=== PATIENT | female | born 1950 | race Caucasian/White ===

== ENCOUNTER 2016-11-01 11:55 | Inpatient (IN) | payer OTHER ==
[~2016-11-01] VITALS: Ht 167.6 cm; Wt 86.4 kg
[~2016-11-01 11:55] MED LIST: IBUP800T28 PO
[2016-11-01 11:56] VITALS: BP 155/92; PULSE 81; RESP 16; O2SAT 93
--- NOTE | 2016-11-01 12:14 | ED.REPORT ---
HPI-General Illness Date of Service November 01, 2016 ED Provider: George Trujillo DO Pt is a 66 y.o. female with a hx of PVCs' who presents to the ED via EMS c/o rapid palpitations. She states she was cleaning her house and bent over to grab something and she began to feel lightheaded and near syncopal. She states that she felt like her heart stop for 10-30 seconds and she tried coughing as it has helped "re-start her heart" with her PVC's in the past. She states upon sitting down her recorded HR was 190. She denies associated SOB and chest pain. Upon arrival to the ED the pt states her sx have resolved. She claims that she has been on a recent strict diet and has increased stress and anxiety in her life. Nursing Notes Stated Complaint: RAPID HEART RATE Chief Complaint: Dysrhythmia/Cardiac Nursing Notes Reviewed: Yes Allergies: Coded Allergies: tetracycline (Verified Allergy, Severe, GI UPSET, 11/01/16) macadamia nut oil (Verified Allergy, Unknown, Hives, 11/01/16) Scheduled PRN Ibuprofen (Ibuprofen) 800 Mg Tablet 800 MG PO QID PRN PRN For Pain General Time Seen by MD: 12:07 Chief Complaint Other (Palpitations, rapid) Hx Obtained From: Patient Arrived By: Ambulance Sudden in Onset?: Yes Onset Occurred: Just prior to arrival Symptom Duration: 31 - 45 minutes Severity: Current: No pain currently Severity: Maximum: No pain Past Medical History Past Medical History Anxiety Depression HTN h/o colitis Reports: Hypertension Reports: Thyroid disease Past Surgical History Cyst removal Reports: Hysterectomy, Tonsillectomy Smoking History Former Smoker Social History Alcohol Use: "Social" Ambulatory Status Independent Review of Systems Full Review of Systems Respiratory: Denies: Shortness of breath Cardiovascular: Reports: Palpitations (rapid), Syncope (Near), Denies: Chest pain Neurologic: Reports: Lightheaded Psychiatric: Reports: Anxiety, Stress Complete sys rev & neg: except as marked. Physical Exam Vital Signs Vital Signs Date Time Temp Pulse Resp B/P Pulse Ox O2 Delivery O2 Flow Rate FiO2 11/01/16 11:56 36.6 81 16 155/92 93 Room Air Initial VS: Reviewed Abdomen / GI: No distention Extremities: Vascular intact, Neuro intact Skin: Warm, Dry, No cyanosis Neurologic: Alert, Oriented, Nonfocal Psychiatric: Mood/affect normal, Behavior normal, Normal thought content General/Constitutional: Awake, Alert, Well appearing, Well developed, Well hydrated, Well nourished, Not toxic appearing Appearance / Presentation: Positive: Obese Head / Eyes: Atraumatic, Normocephalic, PERRL, EOMI Respiratory / Chest: Atraumatic, Breath sounds NL, Breath sounds = bilat, No respiratory distress Cardiovascular: Heart rate NL, Regular rhythm, Heart sounds NL, Peripheral circulation NL No lower extremity edema Interpretation & Diagnostics Lab Results Interpretation Result Diagram: 11/01/16 1415 11/01/16 1415 Test 11/01/16 14:15 11/01/16 15:35 White Blood Count 4.1th/mm3 (3.8-10.1) Red Blood Count 5.32mil/mm3 (3.90-5.20) Hemoglobin 14.4g/dL (12.0-15.6) Hematocrit 43.6% (35.0-46.0) Mean Corpuscular Volume 82.0fL (81-100) Mean Corpuscular Hemoglobin 27.1pg (27.0-35.0) Mean Corpuscular Hemoglobin Concent 33.0% (32.0-37.0) Red Cell Distribution Width 14.8% (12.3-15.4) Platelet Count 190bil/L (150-400) Neutrophils (%) (Auto) 61.8% (40-74) Lymphocytes (%) (Auto) 28.5% (14-46) Monocytes (%) (Auto) 8.0% (4-12) Eosinophils (%) (Auto) 0.7% (0-5) Basophils (%) (Auto) 1.0% (0-3) Sodium Level 141mEq/L (134-144) Potassium Level 4.2mEq/L (3.5-5.2) Chloride Level 102mEq/L (97-108) Carbon Dioxide Level 22mmol/L (18-29) Blood Urea Nitrogen 19mg/dL (8-27) Creatinine 0.79mg/dL (0.57-1.00) Estimat Glomerular Filtration Rate 105mL/min (>59) Glucose Level 128mg/dL (60-99) Calcium Level 9.7mg/dL (8.5-10.1) Magnesium Level 2.3mg/dL (1.6-2.6) Total Bilirubin 0.4mg/dL (0.0-1.2) Aspartate Amino Transf (AST/SGOT) 23U/L (0-50) Alanine Aminotransferase (ALT/SGPT) 17U/L (0-32) Alkaline Phosphatase 56U/L (25-165) Total Creatine Kinase 178U/L (21-215) Creatine Kinase MB 4.7ng/mL (0.0-5.3) Creatine Kinase MB % % (0.0-5.0) Pro-B-Type Natriuretic Peptide 109.5pg/mL (0-287) Total Protein 7.3g/dL (6.4-8.4) Albumin 4.3g/dL (3.4-5.0) Triglycerides Level 98mg/dL (0-149) Cholesterol Level 244mg/dL (100-199) LDL Cholesterol, Calculated 150.400mg/dL (0-99) VLDL Cholesterol 19.600mg/dL HDL Cholesterol 74mg/dL (>39) Cholesterol/HDL Ratio 3.30 (0.0-4.4) Troponin T 0.055ug/L (0.0-0.011) Hold Munoz Top Tube Received (Received) ECG Interpretation ECG Interpretation: Left atrial enlargement LVH, more prominent when compared with EKG from 08/28/[address] changes No delta waves are noted Time: 13:27 Interpreted by: ED physician Normal ECG Interpretation: Normal rate (68), Normal sinus rhythm Cardiac / Vascular Lab Interp Troponin abnormal X-Ray Chest Interpretation Chest Xray Interpretation: IMPRESSION: Mild cardiomegaly and interstitial prominence suggesting fluid overload. Dictated by: Melba Allen M.D. on 11/01/2016 at 13:02 Approved by: Melba Allen M.D. on 11/01/2016 at 13:02 Re-Eval/Medical Decision Med Decision/Clinical Course 66-year-old female with history of PVCs previously treated on atenolol which was stopped due to bradycardia and intolerance of side effects presents after an episode of palpitations and lightheadedness. Patient's history is quite concerning in light of an elevated troponin, however since arriving in the ER she has had sinus rhythm and has been asymptomatic from palpitations, chest pain , or shortness of breath. I am concerned that she may have had some sort of tachyarrhythmia such as V. tach/V. fib or possibly SVT that precipitated her symptoms. Dr. Emery agrees that we ought to work her up for cardiac causes and has recommended heparin, beta blockers, statin, aspirin, telemetry monitoring, serial troponins and echocardiogram. She saw and evaluated the patient here in the ER. Given that she is asymptomatic, angiogram not indicated at this time. Patient is agreeable to stay for cardiac workup. There is some evidence of congestive heart failure/LVH based off of our findings today on chest x-ray and on EKG, however the patient does not appear fluid overloaded on exam and denies shortness of breath. Source of Hx: Old records Time of Eval: 15:28 Re-Evaluation/Progress Note: Pt rechecked. Discussed lab results, need for cardiology consult, and plan to admit. Pt understands and agrees with plan. Consultation #1: Referral / Consult Name: Milvia Emery MD Consulted With: Cardiology Call Returned at: 16:04 Note: Discussed pt condition with Dr. Emery, she reccomends admit with echo, troponin every 8 hours, beta phillip, and ASA. Consultation #2: Referral / Consult Name: Juancarlos Mart MD Consulted With: Hospitalist Requested Call at: 16:19 Assistant Chief Of Police: Accepts admit Note: Dsicussed pt condition and cosnult with Dr. Emery. Accepts admit. Counseled Regarding: Diagnosis, Lab results, Need for admission Discharge & Departure Primary Impression: Elevated troponin Additional Impressions: Rapid palpitations Cardiomegaly Disposition: Home Discharge Condition All VS Reviewed: Yes Condition: Improved Referrals: Eliu Valdivia MD (PCP) Helen Attestation Portions of this note were transcribed by Toby Mejia. I, Dr. Trujillo personally performed the history, physical exam and medical decision-making; I reviewed and confirmed the accuracy of the information in the transcribed note. Signed by: Helen Fragoso, 11/01/16 and 1613 copies to: Eliu Valdivia MD, Gary R DO November 01, 2016 12:14 TOBY MEJIA November 01, 2016 12:27
--- NOTE | 2016-11-01 13:04 | DRSVH ---
PROCEDURE: X-RAY CHEST, TWO VIEWS ([id number]) INDICATIONS: PALPITATIONS, PRE-SYNCOPE TECHNIQUE: 2 views of the chest were acquired. COMPARISON: [facility], CR, XR CHEST 2VW, 07/28/2016, 17:11. FINDINGS: Surgical changes and devices: None. Lungs and pleura: There is diffuse interstitial prominence. No focal airspace opacities. No pleural e ffusion or pneumothorax. Mediastinum: Mediastinal contours are normal. Heart size is mildly enlarged. Bones and chest wall: No suspicious bony abnormalities. Soft tissues appear unremarkable. IMPRESSION: Mild cardiomegaly and interstitial prominence suggesting fluid overload. Dictated by: Melba Allen M.D. on 11/01/2016 at 13:02 Approved by: Melba Allen M.D. on 11/01/2016 at 13:02
[2016-11-01 14:24] LABS: EOSINOPHILS % (AUTO) 0.7 % (0-5); Mean Corpuscular Hemoglobin 27.1 pg (27.0-35.0); NEUTROPHILS % (AUTO) 61.8 % (40-74); Platelet Count 190 bil/L (150-400)
[2016-11-01 15:03] LABS: TROPONIN T 0.074 ug/L (0.0-0.011)
[2016-11-01 15:05] LABS: Magnesium 2.3 mg/dL (1.6-2.6)
[2016-11-01] MEDS ORDERED: MeTOProlol XL 25 mg ER24 Tablet PO ONE (16:10)
--- NOTE | 2016-11-01 16:27 | PCM.HPMED ---
Subjective Date of Service November 01, 2016 Primary Provider: Admitting Physician: Primary Care Physician: Eliu Valdivia MD Attending Physician: Chief Complaint: pauses, followed by palpitations History of Present Illness: 66-year-old female with history of symptomatic PVCs, accelerated idioventricular rhythms used to be on BB, JEFF, HTN-diet controlled, former smoker p/w cardiac episodes. Since pt had admission in 2006 with symptomatic PVC, pt followed [facility] , did all cardiac w/u including echo, stress test, but cardiac cath , eventually was told that she no longer needed atenolol. Even then, pt also noticed when she was on atenolol, she noticed heart rate was 40s. Since then pt had frequent PVCs. pt stated that she has been under a lot of stress from her work recently, she has experienced more PVCs without other sx such as blurry vision, chest pain, dizziness. Episodes usually lasted 1-3 hours and resolved spontaneously. didn't restart atenolol. Today morning, pt was helping her dad cleaning his house, then pt suddenly felt lightheaded, felt like she passed out without chest pain, dizziness, SOB, then at that time, noticed check her pulses , didn't feel it, may last up to 30sec. pt was trying to cough to bring her pulse back, then started noticing rapid heart beat, pt mildly felt chest pressure, used her dad' pulseOx, HR was 190s. asked her dad to call EMS. pt denied having similar episode in the past. ED. VS 155/92. 81, 16, afebrile, 93% onRA, by the time get to ED, episode resolved. During interview in ED, pt denied having chest pain, SOB, palpitation, dizziness. ROS: denied recent fever, chills, cough, sputum, dysuria, sore throat runny nose , travel to [place] 3weeks ago. denied exetional dyspnea. uses CPAP for JEFF, woke up sometimes with extereme fatige as if she had marathone when CPAP was not placed on properly but usually sleeps well. had one episode of diarrhea this morning, denied n/v/c. abdominal pain. Review of Systems: Pertinent positives as noted in history of present illness. All other systems were reviewed and are negative Allergies Coded Allergies: tetracycline (Verified Allergy, Severe, GI UPSET, 11/01/16) macadamia nut oil (Verified Allergy, Unknown, Hives, 11/01/16) Home Medications s/p HCTZ s/p atenolol no active meds PMH As described above Diagnosed with breast cancer 15 years ago, didn't have RT/surgery/chemo, on surveillance mammogram every 3mo, HTN, recently PCP gave HCTZ for week but pt felt "feeling of tightness" so stopped it a month ago Surgical History Hysterectomy benign tumor removal on the lower back Family History Father recently had a heart valve replacement, diabetes, kidney disease Mother was of metastatic lung CA to brain brother also has brain tumor Social History Hx Alcohol Use: Yes ("NOT MUCH") Hx Substance Use: No Smoking Status: Former Smoker Exam Vital Signs Vital Sign - Last Date Time Temp Pulse Resp B/P Pulse Ox O2 Delivery O2 Flow Rate FiO2 11/01/16 11:56 36.6 81 16 155/92 93 Room Air Exam NAD, comfortably laying down on the bed no JVD, MMM, no LAD RRR, nl s1, s2 no mrg Mild crackles bialterally, no wheezing S,ND,NT,normoactive BS+ warm, no edema, pulses 2/2 Lab and Diagnostics Result Diagram: 11/01/16 1415 11/01/16 1415 X-Rays, CTs and MRIs PROCEDURE: X-RAY CHEST, TWO VIEWS ([id number]) INDICATIONS: PALPITATIONS, PRE-SYNCOPE TECHNIQUE: 2 views of the chest were acquired. COMPARISON: [facility], CR, XR CHEST 2VW, 07/28/2016, 17:11. FINDINGS: Surgical changes and devices: None. Lungs and pleura: There is diffuse interstitial prominence. No focal airspace opacities. No pleural effusion or pneumothorax. Mediastinum: Mediastinal contours are normal. Heart size is mildly enlarged. Bones and chest wall: No suspicious bony abnormalities. Soft tissues appear unremarkable. IMPRESSION: Mild cardiomegaly and interstitial prominence suggesting fluid overload. Dictated by: Melba Allen M.D. on 11/01/2016 at 13:02 Approved by: Melba Allen M.D. on 11/01/2016 at 13:02 12-lead ECG sinus, LVH, LAE Assessment & Plan 66-year-old female with history of symptomatic PVCs, accelerated idioventricular rhythms used to be on BB, JEFF, HTN-diet controlled, former smoker p/w cardiac episodes. Acute, active probable episode of cardiac pauses followed by tachyarhyhmia, POA, concerning for ACSwith trops+ x1, pt also did hx of symptomatic PVCs, accelerated idioventricular rhythms. CXR showed mild cardiomegaly, pulmonary edema, pt seemd mildly overloaded possibly from tachyarhythmia but respiratory status is stable on RA, BNP is unremarkable. -appreciate cardiology input -serial trops, STAT EKG if chest occur -started asa,BB,heparin gtt per protocol, statin for presumed ACS, trends h/h -nitro, morphine, O2 for active chest pain, -TTE, probable cardiac cath, appreciate -telemetry for high-degree blocks, ventricular arrhythmias -will consider lasix if O2 requirement up -a1c, lipid for risks stratification troponin leak, POA, demand vs NSTEMI, will trends Chronic, stable HTN, diet controlled monitor for now JEFF, father will bring home CPAP hx of breast ?tumor or cancer, on surveillance, not active. dispo:Patient will be admitted with inpatient status with expectation of inpatient therapy for more than 2 midnights diet:cardiac dvt ppx:systemic AC Full code Time spent 65min Juancarlos Mart MD November 01, 2016 16:20
[2016-11-01 17:00] LABS: Creatine Kinase 178 U/L (21-215)
[2016-11-01 17:12] VITALS: BP 167/80; PULSE 71; RESP 15; O2SAT 100
[2016-11-01] MEDS: Heparin 5,000 Unit/mL Inj IVPUSH PRN ×2 (17:45→23:11)
[2016-11-01] MEDS: Heparin 25K Unit/500mL 0.45 NS 25,000 UNIT in IV Premix 1 EACH IV SCH (17:45)
[2016-11-01 18:24] VITALS: BP 167/73; PULSE 63; RESP 18; O2SAT 97
[2016-11-01] MEDS ORDERED: [UNRECOGNIZED DRUG - OTHER] PO (19:57)
[2016-11-01] MEDS ORDERED: [UNRECOGNIZED DRUG - REMARK] PO (19:57)
[2016-11-01] MEDS ORDERED: OMEG10002 PO (19:57)
--- NOTE | 2016-11-01 20:12 | CONS ---
[address] [address] CONSULTATION REPORT PATIENT: GUERITA MELÉNDEZ : 1950 MR#: [id number] ADMIT: 11/01/2016 JOB ID: [id number] CARDIOLOGY CONSULTATION: DATE OF SERVICE: 11/01/2016 CHIEF COMPLAINT: Near syncope. HISTORY OF PRESENT ILLNESS: The patient is a delightful 66-year-old woman. She was assisting her dad with painting. She bent down to tie her shoes and then suddenly she felt that her heart stopped. She felt extremely dizzy. She was anxious and was not sure of her heart would restart. Eventually she said the heart started up but it was extremely fast and made her experience severe palpitations. Her father has a pulse oximeter and he put in on patient's finger. The patient's father says her pulse was 198 beats per minute. After a few minutes, normal sinus rhythm was restored. Patient's father called 911 but by the time medics arrived, she was back in normal sinus rhythm. So far in the course of her emergency department evaluation, she has been in normal sinus rhythm. PAST MEDICAL HISTORY: 1. PVCs. The patient was closely monitored by Dr. Rebolledo, but has not seen him in a few years. She was previously on atenolol but felt that she was "walking through quicksand" and made the decision to stop this medication. 2. Excess weight. Patient has embarked on a new diet. 3. Graves disease treated with radioactive iodine. FAMILY HISTORY: Her father has a history of aortic valve replacement. SOCIAL HISTORY: The patient lives in [place]. She is a former smoker. REVIEW OF SYSTEMS: Patient had a recent bloody nose for no apparent reason. She is also trying to do a diet. She reports no changes in bowel habits. Otherwise 10 point review of systems is negative. PHYSICAL EXAMINATION: Very avalos, well-nourished woman in no apparent distress. Eyes: No scleral icterus. Neck is supple. No lymphadenopathy. No carotid bruits. Heart: Normal S1, S2. No murmurs. Lungs: Clear to auscultation anteriorly. Abdomen is soft, positive bowel sounds. No hepatosplenomegaly. Extremities: Warm and well perfused. No clubbing, cyanosis, or edema. Skin: No rashes or lesions other than very avalos complexion. She says she was recently tanning on vacation in [place]. DIAGNOSTIC DATA: EKG with left atrial enlargement, otherwise normal. Troponin T 0.074 in the setting of normal kidney function. ASSESSMENT AND PLAN: In summary, this is a delightful 66-year-old woman with non-ST elevation myocardial infarction, and she is treated medically with aspirin, heparin drip, and beta phillip. I think we should evaluate her for coronary artery disease risk factors, in particular lipids. We should put her on telemetry. We should also check her thyroid since she has had a history of Graves disease. I see that morning labs are ordered for tomorrow and I think that is a good idea. I will go ahead and order also some Plavix for this patient without a Plavix load and monitor her response to this medication closely. Anticipate cardiac catheterization on Thursday and echocardiogram next available. Thank you very much for the opportunity to participate in this patient's care.
[2016-11-01 20:48] VITALS: BP 156/77; PULSE 60; RESP 18; O2SAT 98
[2016-11-02] VITALS (9 sets, daily range): BP systolic 135–170; BP diastolic 61–75; PULSE 52–72; RESP 16–18; O2SAT 94–98
[2016-11-02] MEDS: MeTOProlol XL 25 mg ER24 Tablet PO SCH (11:40)
[2016-11-02] MEDS: Heparin 5,000 Unit/mL Inj IVPUSH PRN (11:43)
--- NOTE | 2016-11-02 15:12 | PCM.PNMED ---
Subjective Date of Service November 02, 2016 Subjective pt feels okay, no episode of chest pain, pauses, high degree blocks on tele tolerated heparin, BB, ASA, plavix added per Exam Vital Signs Vital Sign - Last Date Time Temp Pulse Resp B/P Pulse Ox O2 Delivery O2 Flow Rate FiO2 11/02/16 12:47 36.8 54 16 157/68 94 Room Air Intake and Output 11/01/16 11/01/16 11/02/16 Cumulative From/Thru 15:00 23:00 07:00 11/01/16 11:56 - 11/02/16 04:58 Intake Total 700 ml 700 ml Output Total 900 ml 900 ml Balance -200 ml -200 ml Intake Oral 700 ml 700 ml Output Urine Total 900 ml 900 ml Exam NAD, comfortably laying down on the bed no JVD, MMM, no LAD RRR, nl s1, s2 no mrg Mild crackles bialterally, no wheezing S,ND,NT,normoactive BS+ warm, no edema, pulses 2/2 IVs and Medications Medications Reviewed: Medications were reviewed in detail Lab and Diagnostics Result Diagram: 11/02/16 0436 11/01/16 1415 X-Rays, CTs and MRIs PROCEDURE: X-RAY CHEST, TWO VIEWS ([id number]) INDICATIONS: PALPITATIONS, PRE-SYNCOPE TECHNIQUE: 2 views of the chest were acquired. COMPARISON: [facility], CR, XR CHEST 2VW, 07/28/2016, 17:11. FINDINGS: Surgical changes and devices: None. Lungs and pleura: There is diffuse interstitial prominence. No focal airspace opacities. No pleural effusion or pneumothorax. Mediastinum: Mediastinal contours are normal. Heart size is mildly enlarged. Bones and chest wall: No suspicious bony abnormalities. Soft tissues appear unremarkable. IMPRESSION: Mild cardiomegaly and interstitial prominence suggesting fluid overload. Dictated by: Melba Allen M.D. on 11/01/2016 at 13:02 Approved by: Melba Allen M.D. on 11/01/2016 at 13:02 12-lead ECG sinus, LVH, LAE Assessment & Plan 66-year-old female with history of symptomatic PVCs, accelerated idioventricular rhythms used to be on BB, JEFF, HTN-diet controlled, former smoker p/w cardiac episodes. Acute, active probable episode of cardiac pauses followed by tachyarhyhmia, POA, concerning for ACSwith trops+ x1, pt also did hx of symptomatic PVCs, accelerated idioventricular rhythms. CXR showed mild cardiomegaly, pulmonary edema, pt seemd mildly overloaded possibly from tachyarhythmia but respiratory status is stable on RA, BNP is unremarkable. -appreciate cardiology input, plan for cardiac cath tomorrow per -serial trops, STAT EKG if chest occur -started asa,plavix, BB,heparin gtt per protocol, statin for presumed ACS, trends h/h -nitro, morphine, O2 for active chest pain, -TTE -telemetry for high-degree blocks, ventricular arrhythmias -will consider lasix if O2 requirement up -a1c, lipid for risks stratification troponin leak, POA, demand vs NSTEMI, will trends Chronic, stable HTN, diet controlled monitor for now JEFF, father will bring home CPAP hx of breast ?tumor or cancer, on surveillance, not active. dispo:likely 1-2more days, diet:cardiac, NPO after MN dvt ppx:systemic AC Full code Time spent 35min Juancarlos Mart MD November 02, 2016 15:12
[2016-11-02] MEDS: Heparin 25K Unit/500mL 0.45 NS 25,000 UNIT in IV Premix 1 EACH IV SCH (17:04)
--- NOTE | 2016-11-02 18:02 | DRSVH ---
[facility] [address] [place] [address] Echocardiogram Report Name: GUERITA MELÉNDEZ LStudy Date: 11/02/2016 Height: 66 in Hospital Exam Location: [facility] Weight: 190 lb Gender: Female BSA: 2.0 m2 : 1950 Age: 66 yrs BP: 145/64 mm Hg Reason For Study: Elevated Troponin Ordering Physician: HOSPITALIST [facility] Performed By: Lisa Cardenas Referring Physician: Dr. Mario Valdivia Interpretation Summary Technically difficult study requiring Definity contrast agent to better visualize endocardium. Normal sinus rhythm. Normal LV size, mild concentric LVH. There is distal septal, mid- inferoseptal, mid-inferior and distal inferior hypokinesis; otherwise normal wall motion throughout. EF is 60-65%. No valvular abnormalities. No prior study available for comparison. Procedure: A two-dimensional transthoracic echocardiogram with color flow and Doppler was performed. A contrast injection of Definity was performed to improve assessment of LV function. The patient had an echocardiogram, but there is no comparison study available. The patient was in normal sinus rhythm during the exam. Left Ventricle: There is mild concentric left ventricular hypertrophy. The left ventricle is normal in size. The ejection fraction is estimated to be 60 -65%. Spectral Doppler of the mitral inflow yields an E/A ratio that is between 0.8 and 1.5. Right Ventricle: The right ventricle is not well visualized. The right ventricle grossly appears normal in size with probable normal systolic function. Atria: The left atrium is mildly dilated. The right atrium grossly appears normal in size. There is no Doppler evidence for an interatrial shunt. Mitral Valve: The mitral valve is normal in structure and function. There is trace mitral regurgitation. Aortic Valve: The aortic valve is trileaflet. The aortic valve opens well. There is trace aortic regurgitation. Tricuspid Valve: The tricuspid valve is not well visualized, but is grossly normal. There is trace tricuspid regurgitation. The right ventricular systolic pressure is estimated at 34 mmHg assuming a right atrial pressure of 3 mm Hg. Pulmonic Valve: The pulmonic valve is not well visualized. Great Vessels: The aortic root is normal size. The ascending aorta is normal in size. The aortic arch is normal in size. The IVC is of normal diameter and collapses greater than 50% with a sniff. This suggests a low right atrial pressure of 3 mm Hg. Pericardium/ Pleura There is no pericardial effusion. MMode/2D Measurements & Calculations LVIDd: 4.6 cm LA A2 area LVOT diam: 1.7 cm LV chaparro. diameter/BSA LVIDs: 3.0 cm Ao root diam (cm/m^2): 2.3 FS: 33.6 % EPSS: 0.15 cm LA A4 area asc Aorta Diam IVSd: 1.2 cm LVPWd: 1.1 cm LA length Ao Arch Diam (vol): 5.7 cm (Prox Trans): LA vol: 69.8 ml .1 cm LA vol index IVC diam : 2.0 cm LV sys. diameter/BSA (cm/m^2): 1.5 Doppler Measurements & Calculations Ao V2 max MV E max day[place] MV E/A: 0.95 TR max [place] : 149.6 cm/sec : 90.2 cm/sec Med Peak E' [place] : 276.7 cm/sec Ao max PG MV A max [place] TR max PG : 9.0 mmHg : 94.9 cm/sec E/E' med: 12.6 : 30.6 mmHg Ao mean PG MV P1/2t: 53.9 msec Lat Peak E' [place] PA V2 max : 87.7 cm/sec LVOT Max [place] E/E' lat: 8.7 PA mean PG : 113.9 cm/sec E/e' average PA Accel Time OPHELIA(I,D): 1.8 cm MV A dur: 0.11 sec: 0.17 sec sev ratio MV dec time MV P1/2t max [place] Ao V2 mean LV V1 max PG : 0.18 sec : 95.7 cm/sec MVA(P1/2t): 4.1 cm2 Ao V2 VTI: 35.0 cmLV V1 VTI OPHELIA(V,D): 1.8 cm2 : 27.2 cm PA V2 mean OPHELIA indexed to BSA : 71.1 cm/sec (cm^2/m^2): 0.92 Reading Physician:06:01 PM
[2016-11-03] VITALS (15 sets, daily range): BP systolic 118–154; BP diastolic 51–75; PULSE 48–61; RESP 10–18; O2SAT 93–97
--- NOTE | 2016-11-03 00:38 | PROG NOTE ---
[address] [address] PROGRESS NOTE PATIENT: GUERITA MELÉNDEZ : 1950 MR#: [id number] ADMIT: 11/01/2016 JOB ID: [id number] DATE: 11/02/2016 SUBJECTIVE: The patient says she has not had any chest pain, recurrent. She has not had any palpitation recurrent. She has not had a feeling that her heart stopped and she has not had any events on telemetry. OBJECTIVE: Vital signs reviewed. Temperature 36.8, blood pressure 135/61, up to 170/75, pulse 52, up to 66, satting 94-98% on room air. Well-nourished woman in no apparent distress. Eyes: No scleral icterus. Heart: Normal S1, S2. No murmurs. Lungs: Clear to auscultation bilaterally. Abdomen: Soft, positive bowel sounds. No lower extremity edema. The right common femoral artery is showing normal pulsation and no bruit. CURRENT MEDICATIONS: 1. Aspirin 325 mg daily. 2. Plavix 75 mg daily. 3. Lipitor 80. 4. Lisinopril 5. 5. Toprol-XL 25 mg daily. 6. Heparin drip per ACS protocol. LABORATORIES: Reviewed. Crit is normal. Troponin-T peaked at 0.071 on admission. TSH and free T4 is normal. Electrolytes were not checked today. They were fine yesterday. ASSESSMENT AND PLAN: This is a 66-year-old woman with hyperlipidemia and clinically what appears to be non- ST-elevation myocardial infarction. Her echocardiogram showed focal wall motion abnormalities involving the apex and distal inferior wall. I recommend cardiac catheterization. Consent obtained. All questions answered. Tentatively made n.p.o. after midnight. In terms of medical therapy, she seems to be tolerating dual antiplatelet therapy, aspirin and Plavix. She is tolerating statin. She is tolerating beta phillip that I started for arrhythmia prevention, as well as lisinopril for hypertension. Will monitor this patient closely. Thank you very much for the opportunity to participate in her care.
[2016-11-03] MEDS ORDERED: 0.9% Sodium Chloride 1,000 ML IV ONE (04:39)
[2016-11-03 05:18] LABS: BASOPHILS % (AUTO) 0.4 % (0-3); EOSINOPHILS % (AUTO) 2.2 % (0-5); MONOCYTES % (AUTO) 8.5 % (4-12); Mean Corpuscular Hemoglobin 27.3 pg (27.0-35.0); NEUTROPHILS % (AUTO) 35.5 % (40-74); Platelet Count 205 bil/L (150-400)
[2016-11-03] MEDS: Sodium Chloride LOK Flush 10 mL Syringe IVFLUSH SCH ×3 (08:30→20:30)
[2016-11-03] MEDS ORDERED: 0.9% Sodium Chloride 0 ML ONE (08:51)
[2016-11-03] MEDS ORDERED: Heparin 5,000 Units/500 mL NS Premix IV ONE ×2 (08:51→09:40)
[2016-11-03] MEDS ORDERED: Heparin 1,000 Units/500 mL NS Premix IV ONE ×2 (08:51→09:40)
[2016-11-03] MEDS ORDERED: Nitroglycerin 50,000 mcg/250 mL D5W Premix IV ONE ×2 (08:51→10:42)
[2016-11-03] MEDS ORDERED: Heparin 1,000 Unit/mL 10 mL Inj ONE (08:51)
[2016-11-03] MEDS: MeTOProlol XL 25 mg ER24 Tablet PO SCH (08:53)
[2016-11-03] MEDS ORDERED: fentaNYL-PF 50 mCg/mL 2 mL Inj ONE (10:42)
[2016-11-03] MEDS ORDERED: 0.9% Sodium Chloride 400 ML (4 HRS) IV ONE (12:15)
[2016-11-03] MEDS ORDERED: 0.9% Sodium Chloride 250 ML BOLUS IV PRN (12:15)
[2016-11-03] MEDS ORDERED: Ondansetron 2 mg/mL 2 mL Inj IVPUSH PRN (12:15)
[2016-11-03] MEDS ORDERED: Atropine 1 mg/10 mL (Code) Syringe IVPUSH PRN (12:15)
--- NOTE | 2016-11-03 15:26 | PCM.PNMED ---
Subjective Date of Service November 03, 2016 Subjective Just returned from label folder, coronary arteries are "clean". No further chest pain, no other complaints. Exam Vital Signs Vital Sign - Last Date Time Temp Pulse Resp B/P Pulse Ox O2 Delivery O2 Flow Rate FiO2 11/03/16 14:23 36.7 49 16 146/68 97 Room Air Intake and Output 11/02/16 11/02/16 11/03/16 Cumulative From/Thru 15:00 23:00 07:00 11/01/16 11:56 - 11/03/16 04:54 Intake Total 1600 ml 1086 ml 3386 ml Output Total 2200 ml 300 ml 3400 ml Balance -600 ml 786 ml -14 ml Intake Oral 1600 ml 500 ml 2800 ml IV Total 586 ml 586 ml Output Urine Total 2200 ml 300 ml 3400 ml # Bowel Movements 0 0 Exam Eyes; katherine, eom intact HENT; wel hydrated, no lesions CV; regular, rate 50, no murmur Resp; clear GI; soft non acute non tender Skin; no active rashes Neuro; cn 2-12 intact, no focal neuro deficits Lab and Diagnostics Result Diagram: 11/03/16 04211/03/16 0420 X-Rays, CTs and MRIs PROCEDURE: X-RAY CHEST, TWO VIEWS ([id number]) INDICATIONS: PALPITATIONS, PRE-SYNCOPE TECHNIQUE: 2 views of the chest were acquired. COMPARISON: [facility], CR, XR CHEST 2VW, 07/28/2016, 17:11. FINDINGS: Surgical changes and devices: None. Lungs and pleura: There is diffuse interstitial prominence. No focal airspace opacities. No pleural effusion or pneumothorax. Mediastinum: Mediastinal contours are normal. Heart size is mildly enlarged. Bones and chest wall: No suspicious bony abnormalities. Soft tissues appear unremarkable. IMPRESSION: Mild cardiomegaly and interstitial prominence suggesting fluid overload. Dictated by: Melba Allen M.D. on 11/01/2016 at 13:02 Approved by: Melba Allen M.D. on 11/01/2016 at 13:02 12-lead ECG sinus, LVH, LAE Assessment & Plan 66-year-old female with history of symptomatic PVCs, accelerated idioventricular rhythms used to be on BB, JEFF, HTN-diet controlled, former smoker p/w cardiac episodes. 1.Acute symptomatic tachycardia, poa, resolved -probably reason for troponin elevation -restart b-phillip (toprol 25 d), lipitor 20, asa 81, zesteril 5 daily -monitor overnight, if tolerating medication consider discharge -(nurse from Dr. Chung office will call patient and arrange zio patch and follow up with Dr. Emery). 2.HTN, poa, stable -start lisinopril 3.JEFF, poa, stable -father will bring home CPAP 4.hx of breast ?tumor or cancer, -on surveillance, not active. 5. Pain control -prn IV morphine 6. Anxiety control -prn IV ativan dispo:likely 1-2more days, diet:cardiac, NPO after MN dvt ppx:systemic AC Full code VTE Mechanical Devices: Intermittant Pneumatic CD Osiel Llanos MD November 03, 2016 15:26
--- NOTE | 2016-11-03 15:39 | CS94 ---
[address] [address] DIAGNOSTIC CARDIAC CATHETERIZATION PATIENT: GUERITA MELÉNDEZ : 1950 MR#: [id number] ADMIT: 11/01/2016 JOB ID: [id number] SERVICE DATE: 11/03/2016 PROCEDURE: Selective right and left coronary angiography, left heart catheterization. INDICATION: Non- ST-elevation [place]. PROCEDURAL DETAILS: The reader and the coders are referred to the procedure log for complete details. Briefly, it was done via right femoral approach using a 6-Malaysian system. ANGIOGRAPHIC FINDINGS: 1. Left main: No significant disease. 2. LAD normal. 3. Circumflex nondominant, normal. 4. Right coronary artery is a dominant vessel. It is of moderate caliber. It is free of any significant disease. 5. Left heart catheterization revealed an LVEDP of 14. There was no gradient upon pullback. Ejection fraction is estimated to be 65%. In summary no significant epicardial coronary artery disease. No obvious culprit identified.
[2016-11-04 00:45] VITALS: BP 119/62; PULSE 46; RESP 16; O2SAT 97
[2016-11-04 04:41] VITALS: BP 122/69; PULSE 56; RESP 16; O2SAT 96
--- NOTE | 2016-11-04 08:04 | PROG NOTE ---
[address] [address] PROGRESS NOTE PATIENT: GUERITA MELÉNDEZ : 1950 MR#: [id number] ADMIT: 11/01/2016 JOB ID: [id number] DATE: CHIEF COMPLAINT: Near-syncope, and elevated troponin. She had no recurrence of significant chest pain, palpitations. However, she says she experiences intermittent feeling skipped heartbeat. She underwent reassuring cardiac catheterization on November 03, 2016, which showed no obstructive disease. OBJECTIVE: Vital signs: Temperature 36.8, blood pressure 119/60, up to 122/69, pulse 46, up to 56 beats per minute. Satting 96-97% on room air. A well-nourished woman in no apparent distress. Heart: Normal S1, S2. No murmurs. Lungs: Clear to auscultation anteriorly. Right common femoral artery vascular access shows no bruit and no hematoma. LABORATORIES: Reviewed. CBC is normal. Troponin peaked at 0.07, and then quickly came down. CURRENT MEDICATIONS: In the hospital: 1. Lisinopril 5 mg daily. 2. Toprol-XL 12.5 mg daily. 3. Lipitor 20 mg daily. ASSESSMENT: A 66-year-old woman with elevated troponin following an episode of palpitations, but nothing revealed on monitoring. PLAN: 1. Secondary prevention: While she does not have obstructive coronary artery disease, I think it is important to work on preventing the disease from happening since she did have an episode of elevated troponin. Her lipids are not at goal. Total cholesterol 244, triglycerides 150. I think follow up because she did suffer this event. Ideally, I think our goal LDL should be certainly less than 130. To that end, I think it would be reasonable to start statin. 2. Hypertension: Blood pressure during this hospitalization initially had been elevated up to 155/92. She is responding favorably to enalapril. She experienced palpitations. Historically, she did not tolerate atenolol due to symptomatic bradycardia. I would like to try metoprolol succinate 12.5 mg daily and see how she does for arrhythmia prevention. As an outpatient, we will arrange for her to have a two week long Zio patch, get together and follow up and discuss this in the clinic. I think it is possible she has some arrhythmia, we just have not documented what it is exactly. It could be paroxysmal atrial fibrillation or AVNRT or idiopathic ventricular tachycardia. So, we will try to document what this rhythm is by continuous reporting. The patient is aware of plan. Thank you very much for the opportunity to participate in her care. NASIM
--- NOTE | 2016-11-04 08:04 | PCM.DIMED ---
Discharge Instructions Date of Service November 04, 2016 Dates of Hospitalization November 01, 2016 at 16:45 Discharge Diagnosis Discharge Diagnosis 1.Acute symptomatic tachycardia, poa, resolved 2.HTN, poa, stable 3.JEFF, poa, stable 4.hx of breast ?tumor or cancer, Diet Heart Healthy Activity Limited until seen by PCP Patient Instructions Avoid caffeine. Follow-up plan Plan is to folow up with Dr. Emery the neuroradiologist who saw you in the hospital, and her office will set up a heart monitor for you to wear. Osiel Llanos MD November 04, 2016 08:04
--- NOTE | 2016-11-04 08:09 | PCM.DC.MED ---
Discharge Summary Date of Service November 04, 2016 Dates of Hospitalization Date of Hospital Admission November 01, 2016 at 16:45 Date of Discharge: November 04, 2016 Providers: Admitting Physician: Juancarlos Mart MD Primary Care Physician: Eliu Valdivia MD Attending Physician: Juancarlos Mart MD Diagnosis at Time of Discharge Diagnosis at Time of Discharge 1.Acute symptomatic tachycardia, poa, resolved 2.HTN, poa, stable 3.JEFF, poa, stable 4.hx of breast ?tumor or cancer, Consultations HISTORY OF PRESENT ILLNESS: The patient is a delightful 66-year-old woman. She was assisting her dad with painting. She bent down to tie her shoes and then suddenly she felt that her heart stopped. She felt extremely dizzy. She was anxious and was not sure of her heart would restart. Eventually she said the heart started up but it was extremely fast and made her experience severe palpitations. Her father has a pulse oximeter and he put in on patient's finger. The patient's father says her pulse was 198 beats per minute. After a few minutes, normal sinus rhythm was restored. Patient's father called 911 but by the time medics arrived, she was back in normal sinus rhythm. So far in the course of her emergency department evaluation, she has been in normal sinus rhythm. PAST MEDICAL HISTORY: 1. PVCs. The patient was closely monitored by Dr. Rebolledo, but has not seen him in a few years. She was previously on atenolol but felt that she was "walking through quicksand" and made the decision to stop this medication. 2. Excess weight. Patient has embarked on a new diet. 3. Graves disease treated with radioactive iodine. FAMILY HISTORY: Her father has a history of aortic valve replacement. SOCIAL HISTORY: The patient lives in [place]. She is a former smoker. REVIEW OF SYSTEMS: Patient had a recent bloody nose for no apparent reason. She is also trying to do a diet. She reports no changes in bowel habits. Otherwise 10 point review of systems is negative. PHYSICAL EXAMINATION: Very avalos, well-nourished woman in no apparent distress. Eyes: No scleral icterus. Neck is supple. No lymphadenopathy. No carotid bruits. Heart: Normal S1, S2. No murmurs. Lungs: Clear to auscultation anteriorly. Abdomen is soft, positive bowel sounds. No hepatosplenomegaly. Extremities: Warm and well perfused. No clubbing, cyanosis, or edema. Skin: No rashes or lesions other than very avalos complexion. She says she was recently tanning on vacation in [place]. DIAGNOSTIC DATA: EKG with left atrial enlargement, otherwise normal. Troponin T 0.074 in the setting of normal kidney function. ASSESSMENT AND PLAN: In summary, this is a delightful 66-year-old woman with non-ST elevation myocardial infarction, and she is treated medically with aspirin, heparin drip, and beta phillip. I think we should evaluate her for coronary artery disease risk factors, in particular lipids. We should put her on telemetry. We should also check her thyroid since she has had a history of Graves disease. I see that morning labs are ordered for tomorrow and I think that is a good idea. I will go ahead and order also some Plavix for this patient without a Plavix load and monitor her response to this medication closely. Anticipate cardiac catheterization on Thursday and echocardiogram next available. Thank you very much for the opportunity to participate in this patient's care. Procedures XRay, CTs & MRIs PROCEDURE: X-RAY CHEST, TWO VIEWS ([id number]) INDICATIONS: PALPITATIONS, PRE-SYNCOPE TECHNIQUE: 2 views of the chest were acquired. COMPARISON: [facility], , XR CHEST 2VW, 07/28/2016, 17:11. FINDINGS: Surgical changes and devices: None. Lungs and pleura: There is diffuse interstitial prominence. No focal airspace opacities. No pleural effusion or pneumothorax. Mediastinum: Mediastinal contours are normal. Heart size is mildly enlarged. Bones and chest wall: No suspicious bony abnormalities. Soft tissues appear unremarkable. IMPRESSION: Mild cardiomegaly and interstitial prominence suggesting fluid overload. Dictated by: Melba Allen M.D. on 11/01/2016 at 13:02 Approved by: Melba Allen M.D. on 11/01/2016 at 13:02 ECG 12 Lead sinus, LVH, LAE Invasive Procedures SERVICE DATE: 11/03/2016 PROCEDURE: Selective right and left coronary angiography, left heart catheterization. INDICATION: Non- ST-elevation [place]. PROCEDURAL DETAILS: The reader and the coders are referred to the procedure log for complete details. Briefly, it was done via right femoral approach using a 6-Polish system. ANGIOGRAPHIC FINDINGS: 1. Left main: No significant disease. 2. LAD normal. 3. Circumflex nondominant, normal. 4. Right coronary artery is a dominant vessel. It is of moderate caliber. It is free of any significant disease. 5. Left heart catheterization revealed an LVEDP of 14. There was no gradient upon pullback. Ejection fraction is estimated to be 65%. In summary no significant epicardial coronary artery disease. No obvious culprit identified. Zhang Dasilva MD 11/03/16 1150 Brief History 66-year-old female with history of symptomatic PVCs, accelerated idioventricular rhythms used to be on BB, JEFF, HTN-diet controlled, former smoker p/w cardiac episodes. Since pt had admission in 2006 with symptomatic PVC, pt followed [facility] , did all cardiac w/u including echo, stress test, but cardiac cath , eventually was told that she no longer needed atenolol. Even then, pt also noticed when she was on atenolol, she noticed heart rate was 40s. Since then pt had frequent PVCs. pt stated that she has been under a lot of stress from her work recently, she has experienced more PVCs without other sx such as blurry vision, chest pain, dizziness. Episodes usually lasted 1-3 hours and resolved spontaneously. didn't restart atenolol. Today morning, pt was helping her dad cleaning his house, then pt suddenly felt lightheaded, felt like she passed out without chest pain, dizziness, SOB, then at that time, noticed check her pulses , didn't feel it, may last up to 30sec. pt was trying to cough to bring her pulse back, then started noticing rapid heart beat, pt mildly felt chest pressure, used her dad' pulseOx, HR was 190s. asked her dad to call EMS. pt denied having similar episode in the past. ED. VS 155/92. 81, 16, afebrile, 93% onRA, by the time get to ED, episode resolved. During interview in ED, pt denied having chest pain, SOB, palpitation, dizziness. ROS: denied recent fever, chills, cough, sputum, dysuria, sore throat runny nose , travel to [place] 3weeks ago. denied exetional dyspnea. uses CPAP for JEFF, woke up sometimes with extereme fatige as if she had marathone when CPAP was not placed on properly but usually sleeps well. had one episode of diarrhea this morning, denied n/v/c. abdominal pain. Hospital Course 66-year-old female with history of symptomatic PVCs, accelerated idioventricular rhythms used to be on BB, JEFF, HTN-diet controlled, former smoker p/w cardiac episodes. 1.Acute symptomatic tachycardia, poa, resolved -probably reason for troponin elevation -restart b-phillip (toprol 25 d), lipitor 20, asa 81, zesteril 5 daily -monitor overnight, if tolerating medication consider discharge -(nurse from Dr. Chung office will call patient and arrange zio patch and follow up with Dr. Emery). 2.HTN, poa, stable -start lisinopril 3.JEFF, poa, stable -father will bring home CPAP 4.hx of breast ?tumor or cancer, -on surveillance, not active. 5. Pain control -prn IV morphine 6. Anxiety control -prn IV ativan dispo:likely 1-2more days, diet:cardiac, NPO after MN dvt ppx:systemic AC Full code 11/04/16; Patient is ready for discharge, had a good night but tele showed heart rates 40-60 range. Patient OK to go home but will reduce toprl XL 25 to one half 12.5 daily. Exam Vital Signs (Last) Date Time Temp Pulse Resp B/P Pulse Ox O2 Delivery O2 Flow Rate FiO2 11/04/16 04:41 36.8 56 16 122/69 96 Room Air Exam Comfortable in no distress Cardiac regular, no murmur Lungs clear no edema Test 11/01/16 14:15 11/01/16 15:35 11/01/16 21:50 11/02/16 04:36 Hemoglobin A1c 5.9% (4.8-5.6) Magnesium Level 2.3mg/dL (1.6-2.6) Total Creatine Kinase 178U/L (21-215) Creatine Kinase MB 4.7ng/mL (0.0-5.3) Creatine Kinase MB % % (0.0-5.0) Pro-B-Type Natriuretic Peptide 109.5pg/mL (0-287) Triglycerides Level 98mg/dL (0-149) Cholesterol Level 244mg/dL (100-199) LDL Cholesterol, Calculated 150.400mg/dL (0-99) VLDL Cholesterol 19.600mg/dL HDL Cholesterol 74mg/dL (>39) Cholesterol/HDL Ratio 3.30 (0.0-4.4) Hold Munoz Top Tube Received (Received) Troponin T 0.010ug/L (0.0-0.011) Thyroid Stimulating Hormone (TSH) 2.650uIU/mL (0.450-4.500) Free Thyroxine 1.02ng/dL (0.82-1.77) Test 11/03/16 04:20 11/04/16 06:20 White Blood Count 5.1th/mm3 (3.8-10.1) Red Blood Count 5.13mil/mm3 (3.90-5.20) Hemoglobin 14.0g/dL (12.0-15.6) Hematocrit 42.6% (35.0-46.0) Mean Corpuscular Volume 83.0fL (81-100) Mean Corpuscular Hemoglobin 27.3pg (27.0-35.0) Mean Corpuscular Hemoglobin Concent 32.9% (32.0-37.0) Red Cell Distribution Width 14.9% (12.3-15.4) Platelet Count 205bil/L (150-400) Neutrophils (%) (Auto) 35.5% (40-74) Lymphocytes (%) (Auto) 53.2% (14-46) Monocytes (%) (Auto) 8.5% (4-12) Eosinophils (%) (Auto) 2.2% (0-5) Basophils (%) (Auto) 0.4% (0-3) Activated Partial Thromboplast Time 55.1sec (22.8-33.0) Total Bilirubin 0.5mg/dL (0.0-1.2) Aspartate Amino Transf (AST/SGOT) 22U/L (0-50) Alanine Aminotransferase (ALT/SGPT) 14U/L (0-32) Alkaline Phosphatase 48U/L (25-165) Total Protein 7.2g/dL (6.4-8.4) Albumin 3.9g/dL (3.4-5.0) Sodium Level 139mEq/L (134-144) Potassium Level 4.3mEq/L (3.5-5.2) Chloride Level 103mEq/L (97-108) Carbon Dioxide Level 23mmol/L (18-29) Blood Urea Nitrogen 19mg/dL (8-27) Creatinine 0.76mg/dL (0.57-1.00) Estimat Glomerular Filtration Rate 110mL/min (>59) Glucose Level 96mg/dL (60-99) Calcium Level 9.2mg/dL (8.5-10.1) Discharge Medications Discharge Medications ([DR. Jemima Pederson]) 1 TBS PO DAILY (Reported) ([Crushes Greens]) 1 CAPSULE PO DAILY (Reported) Aspirin (Aspirin) 81 Mg Tablet 81 MG PO DAILY Prescribed by: Osiel NY MD Atorvastatin (Lipitor) 20 Mg Tablet 20 MG PO DAILY Prescribed by: Osiel NY MD Lisinopril (Lisinopril) 5 Mg Tablet 5 MG PO DAILY Prescribed by: Osiel NY MD Metoprolol Succinate ER (Toprol XL) 25 Mg Tablet 12.5 MG PO DAILY Prescribed by: Osiel NY MD Suring-3 Fatty Acids (Super Suring-3) 1,000 Mg Capsule 1,000 MG PO DAILY (Reported ) As needed Ibuprofen (Ibuprofen) 800 Mg Tablet 800 MG PO QID PRN PRN For Pain (Reported) Followup Plan Follow-up plan Plan is to folow up with Dr. Emery the wheat combine driver who saw you in the hospital, and her office will set up a heart monitor for you to wear. Discharge Diet: Heart Healthy Discharge Activity: Limited until seen by PCP Patient Instructions Avoid caffeine. Time spent 38 minutes time spent discharging patient so far today copies to: Eliu Valdivia MD; Chidi Rebolledo MD; Milvia Emery MD, D Geoffrey MD November 04, 2016 08:09
[2016-11-04] MEDS ORDERED: METO25TA3 PO (08:13)
[2016-11-04] MEDS ORDERED: LISI-571 PO (08:13)
[2016-11-04] MEDS ORDERED: ASPI-973 PO (08:13)
[2016-11-04] MEDS ORDERED: ATOR20TA PO (08:13)
[2016-11-04] MEDS ORDERED: MeTOProlol XL 25 mg ER24 Tablet PO SCH (08:30)
[2016-11-04 08:45] VITALS: BP 154/80; PULSE 56
[2016-11-04] MEDS: Sodium Chloride LOK Flush 10 mL Syringe IVFLUSH SCH (08:47)
[2016-11-04 09:14] VITALS: BP 160/76; PULSE 56; RESP 16; O2SAT 98
[2016-11-04 11:00] VITALS: PULSE 47
[2016-11-04 11:44] VITALS: BP 130/75; PULSE 56; RESP 18
== END 2016-11-04 14:05 | disposition home or self-care (01) | DRG 287 ==
LOC: EDBD 11:55 → SED 11:55 → MPC 16:45
PROVIDERS: ADMIT Internal Medicine; ATTEND Internal Medicine
PROC: 4A023N7 Measurement of Cardiac Sampling and Pressure, Left Heart, Percutaneous Approach (ICD-10-PCS; principal; 2016-11-03)
PROC: B2111ZZ Fluoroscopy of Multiple Coronary Arteries using Low Osmolar Contrast (ICD-10-PCS; 2016-11-03)
PROC: B2151ZZ Fluoroscopy of Left Heart using Low Osmolar Contrast (ICD-10-PCS; 2016-11-03)
DX: I49.8 Other specified cardiac arrhythmias (principal); F41.9 Anxiety disorder, unspecified; F32.9 Major depressive disorder, single episode, unspecified; I10 Essential (primary) hypertension; G47.33 Obstructive sleep apnea (adult) (pediatric); Z87.891 Personal history of nicotine dependence